=== PATIENT | male | born 1950 | race Caucasian/White ===

== ENCOUNTER 2020-05-24 15:09 | Emergency (ER) | payer MEDICARE, OTHER ==
[2020-05-27] MEDS ORDERED: LISINOPRIL20 MG PO (13:15)
[2020-05-27] MEDS ORDERED: GABAPENTIN 100100 MG PO (13:15)
[2020-05-27] MEDS ORDERED: LOPRESSOR25 MG PO (13:16)
[2020-05-27] MEDS ORDERED: ASPIRIN EC81 MG PO (13:16)
[2020-05-27] MEDS ORDERED: FENOFIBRATE160 MG PO (13:16)
[2020-05-27] MEDS ORDERED: CENTRUM SILVER1 EAC1 PO (13:17)
[2020-05-27] MEDS ORDERED: ROSUVASTATIN CA20 MG PO (13:17)
[2020-05-27] MEDS ORDERED: METFORMIN HCL500 M3 PO (13:17)
[2020-06-01] MEDS ORDERED: PERCOCET 5-3251 EACH PO (09:00)
== END 2020-05-24 17:12 | disposition home or self-care (01) ==
LOC: FER 15:09
DX: S42.032A Displaced fracture of lateral end of left clavicle, initial encounter for closed fracture (principal); E11.9 Type 2 diabetes mellitus without complications; I10 Essential (primary) hypertension; W19.XXXA Unspecified fall, initial encounter; Y92.009 Unspecified place in unspecified non-institutional (private) residence as the place of occurrence of the external cause
CPT/HCPCS: 73030

== ENCOUNTER → 2020-06-01 | Day surgery (SDC) | payer MEDICARE, OTHER ==
[~2020-06-01] MED LIST: ASPIRIN EC81 MG PO; CENTRUM SILVER1 EAC1 PO; FENOFIBRATE160 MG PO; GABAPENTIN 100100 MG PO; LISINOPRIL20 MG PO; LOPRESSOR25 MG PO; METFORMIN HCL500 M3 PO; PERCOCET 5-3251 EACH PO; ROSUVASTATIN CA20 MG PO
[2020-06-01 10:02] LABS: HGB 13.7 g/dl (13.2-18.0); MCH 29.7 pg (25.0-31.0); MCHC 33.4 g/dL (32.0-36.0); MCV 88.9 fL (78.0-100.0); MPV 10.8 fL (6.0-9.5); RBC 4.61 M/uL (4.70-6.00); RDW 12.5 % (11.5-14.0); WBC 4.6 K/uL (4.0-10.5)
[2020-06-01 10:06] LABS: ALBUMIN 3.9 g/dL (3.4-5.0); BILIRUBIN - TOTAL 0.7 mg/dL (0.2-1.0); BUN/CREAT RATIO (CALC) 20.7 RATIO; CREATININE 0.87 mg/dL (0.67-1.17); GLOBULIN (CALCULATION) 3.5 g/dL; POTASSIUM 4.4 mmol/L (3.5-5.1); TOTAL PROTEIN 7.4 g/dL (6.4-8.2)
== END | disposition home or self-care (01) ==
LOC: FAS 08:07
PROVIDERS: Orthopaedic Surgery
DX: S42.032A Displaced fracture of lateral end of left clavicle, initial encounter for closed fracture (principal); E11.9 Type 2 diabetes mellitus without complications; I10 Essential (primary) hypertension; W18.30XA Fall on same level, unspecified, initial encounter; Z20.822 Contact with and (suspected) exposure to COVID-19
CPT/HCPCS: 36415; 71045; 80053; 93005; J0171; J0690; J1100; J2250; J2405; J2704; J2710; J2795; J3010; J7120